=== PATIENT | female | born 1985 | race Caucasian/White ===

== ENCOUNTER 2017-04-11 01:26 | Inpatient (IN) | payer MEDICAID ==
[~2017-04-11] VITALS: Ht 162.6 cm; Wt 71.1 kg
--- NOTE | 2017-04-11 01:44 | HP ---
Date/Time of Note Date/Time of Note DATE: 04/11/17 TIME: 01:42 OB - History Hx of Present : 2 Para: 1 Care: Good Care Obstetrical Complications: None Medical Complications: None Past Family/Social History * Past Medical, Surgical, Family and Obstetric Histories reviewed from chart. OB Admission Exam Physical Exam HEENT: WNL Heart: Rhythm Normal Lungs: Clear Abdomen: WNL Extremities: Normal Cervical Dilatation: 3cm Membranes: Intact Accelerations: Accelerations Present Decelerations: No Decelerations Varibility: Moderate Contractions on Admission: < 5 Minutes Apart OB Assessment/Plan Reason for admission: active labor, group B positive strep Plan: Expectant Management Other plan: Ampicillin for GBS prophylaxis Epidural, pitocin prn MERLIN ALDRIDGE Apr 11, 2017 01:44
[2017-04-11 01:53] VITALS: Ht 162.6 cm; Wt 71.1 kg
[2017-04-11 01:54] VITALS: BP 112/67; PULSE 74; RESP 22
[2017-04-11] MEDS ORDERED: OXYCODONE/ASPIRIN (4.88/325) TAB PO PRN ×3 (02:00→15:00)
[2017-04-11] MEDS ORDERED: OXYTOCIN 30 UNITS/LR 500 ML IV SCH ×4 (02:00→14:42)
[2017-04-11] MEDS ORDERED: LIDOCAINE 1% (MPF) 30 ML INJ INJ PRN (02:00)
[2017-04-11] MEDS ORDERED: AMPICILLIN 2 GM/NS (PMX) 100 ML IV ONE (02:00)
[2017-04-11] MEDS ORDERED: IBUPROFEN 600 MG TAB PO PRN (02:00)
[2017-04-11] MEDS ORDERED: MISOPROSTOL 200 MCG TAB PR PRN (02:00)
[2017-04-11] MEDS ORDERED: METHYLERGONOVINE 0.2 MG INJ IM PRN (02:00)
[2017-04-11] MEDS ORDERED: CARBOPROST 250 MCG INJ IM PRN (02:00)
[2017-04-11] MEDS ORDERED: BUTORPHANOL 2 MG INJ IV PRN (02:00)
[2017-04-11] MEDS ORDERED: OXYTOCIN 30 UNITS/LR 500 ML IV PRN (02:00)
--- NOTE | 2017-04-11 02:05 | TRIAGE ---
OB Triage Datetime Report Generated by CPN: 04/11/2017 02:05 Datetime: 04/11/2017 01:37 Time of Arrival: 04/11/2017 01:40 EGA: 40.1 Arrived By: Wheelchair Arrived From: OB TRIAGE Datetime: 04/11/2017 01:36 Time of Arrival: 04/11/2017 01:19 Arrived By: Wheelchair Arrived From: Home Chief Complaint: uc's since 23:30 Movement: Present Contractions: Regular Time Contractions Began: 04/10/2017 23:30 Contractions: q5min Rupture of Membranes: Denies Vaginal Bleeding: None Vaginal Discharge: Present Recent Sexual Intercouse: Denies Abdominal Trauma: Not Applicable Patient Complaints: Contractions Time Provider Notified: 04/11/2017 01:40 Provider Notified: UAJE Initial Plan: efm, sve, call ob Datetime: 04/11/2017 01:35 Vaginal Exam Dilatation (cms): 3.0 Effacement (%): 70 Station: -2 Exam By: ramana estevez Vaginal Bleeding: None Cervix, Consistency: Moderate Cervix, Position: Posterior Presentation 'A': Cephalic Datetime: 04/11/2017 01:31 Stage of : OB Triage Temperature Route: Oral Datetime: 04/11/2017 01:30 Stage of : OB Triage Assessment Type: Triage Maternal Assessment Level of Consciousness: Fully Conscious Headache: Denies Blurred Vision: No Respiratory Effort: Unlabored; Regular Rhythm; Equal Expansion Nausea/Vomiting: Denies RUQ Epigastric Pain: Denies Facial Edema: None Fall Risk Assessment History of Falling: (0) No Secondary Diagnosis: (0) No Ambulatory Aid: (0) Bedrest/Nurse Assist IV Therapy: (0) No Gait: (0) Normal/Bedrest/Immobile Mental Status: (0) Oriented to Own Ability Fall Score: 0 Fall Risk Score Definition: No Risk: No action required Datetime: 04/11/2017 01:28 Stage of : OB Triage
[2017-04-11] MEDS: LACTATED RINGER'S 1,000 ML IV SCH ×3 (02:37→10:09)
[2017-04-11 02:47] LABS: BASOPHILS % 0.3 % (0.0-2.0); EOSINOPHILS % 0.3 % (0.0-7.0); HEMATOCRIT 39.5 % (37.0-47.0); LYMPHOCYTES # 1.9 10^3/ul (0.8-2.9); LYMPHOCYTES % 16.2 % (15.0-51.0); MEAN CORPUSCULAR HEMOGLOBIN 33.5 pg (29.0-33.0); MEAN CORPUSCULAR HGB CONC 35.4 g/dl (32.0-37.0); MEAN CORPUSCULAR VOLUME 94.5 fl (82.0-101.0); MEAN PLATELET VOLUME 11.2 fl (7.4-10.4); MONOCYTE # 0.8 10^3/ul (0.3-0.9); MONOCYTES % 6.3 % (0.0-11.0); NEUTROPHIL # 9.1 10^3/ul (1.6-7.5); NEUTROPHILS % 76.3 % (39.0-77.0); PLATELET COUNT 183 10^3/UL (140-415); RED BLOOD COUNT 4.18 10^6/ul (4.20-5.40); RED CELL DISTRIBUTION WIDTH 13.2 % (11.5-14.5); WHITE BLOOD COUNT 11.9 10^3/ul (4.8-10.8)
[2017-04-11 03:03] LABS: INR 0.9; PROTIME 12.2 Sec (11.9-14.9)
[2017-04-11 03:04] LABS: PARTIAL THROMBOPLASTIN TIME 26.6 Sec (25.0-35.0)
[2017-04-11] MEDS ORDERED: FENTAnyl 2MCG/ML-ROPIV 0.2% 100 ML ONE (05:35)
[2017-04-11] MEDS: AMPICILLIN 1 GM/NS (PMX) 50 ML IV SCH ×2 (06:43→10:02)
[2017-04-11] MEDS ORDERED: ONDANSETRON 4 MG INJ ONE (09:54)
[2017-04-11] MEDS ORDERED: ONDANSETRON 4 MG INJ IV PRN ×2 (10:00→15:00)
--- NOTE | 2017-04-11 13:03 | LDN ---
Date/Time of Note Date/Time of Note DATE: 04/11/17 TIME: 12:59 Delivery Summary Normal spontaneous vaginal delivery of a baby girl from OA position shoulders delivered with no difficulty rest of the baby's body followed. Cord clamped after stopped pulsation. Placenta is spontaneous expulsion inspected complete. Blood loss 250 cc Weeks of Gestation 40 weeks and 1 day Placenta Delivered: Spontaneously Meconium: none Episiotomy: No Laceration repair: Small first-degree perineal laceration repaired with 3-0 Vicryl suture Anesthesia type: Epidural Sponge & Needle done & correct: Yes All needle counts correct: Yes Any foreign bodies felt in the: No Problems: Infant Delivery Information Sex Infant Sex: female Apgars 1 Minute: 9 5 Minute: 9 Suctioning Nose & mouth suctioned at emmy: Yes Delee suction performed: No Umbilical Cord Umbilical cord with: 3 Vessels Cord presentations: no nuchal cord Cord Blood was obtained: Yes RAMOS GONZÁLES MD Apr 11, 2017 13:03
[2017-04-11 14:50] VITALS: BP 101/58; PULSE 81; RESP 18
[2017-04-11] MEDS ORDERED: BENZOCAINE 20% 56 ML SPRAY TOP PRN (15:00)
[2017-04-11] MEDS ORDERED: LANOLIN 7 GM TUBE TOP PRN (15:00)
[2017-04-11] MEDS ORDERED: HYDROCODONE/APAP (5/325) TAB PO PRN ×2 (15:00)
[2017-04-11] MEDS ORDERED: WITCH HAZEL/GLYCERIN PAD PR PRN (15:00)
[2017-04-11] MEDS ORDERED: DIBUCAINE 1% 30 GM OINT PR PRN (15:00)
[2017-04-11] MEDS ORDERED: ACETAMINOPHEN 325 MG TAB PO PRN (15:00)
[2017-04-11 15:20] VITALS: BP 114/60; RESP 20
[2017-04-11 16:40] VITALS: BP 114/60; PULSE 80; RESP 18
[2017-04-11] MEDS: IBUPROFEN 600 MG TAB PO SCH (17:14)
[2017-04-11 20:00] VITALS: BP 104/64; PULSE 80; RESP 18
[2017-04-11] MEDS: SENNA/DOCUSATE NA (8.6MG/50MG) TAB PO SCH (21:36)
[2017-04-12 00:10] VITALS: BP 102/66; PULSE 78; RESP 17
[2017-04-12] MEDS: IBUPROFEN 600 MG TAB PO SCH ×4 (00:24→18:02)
[2017-04-12] MEDS: LACTATED RINGER'S 1,000 ML IV SCH (01:49)
[2017-04-12 04:00] VITALS: BP 98/59; PULSE 78; RESP 18
[2017-04-12 08:00] VITALS: BP 98/55; PULSE 79; RESP 19
[2017-04-12 08:52] LABS: BASOPHILS % 0.3 % (0.0-2.0); EOSINOPHILS # 0.1 10^3/ul (0.0-0.5); EOSINOPHILS % 0.5 % (0.0-7.0); HEMATOCRIT 31.8 % (37.0-47.0); HEMOGLOBIN 11.3 g/dl (12.0-16.0); LYMPHOCYTES % 21.9 % (15.0-51.0); MEAN CORPUSCULAR HEMOGLOBIN 34.2 pg (29.0-33.0); MEAN CORPUSCULAR HGB CONC 35.5 g/dl (32.0-37.0); MEAN CORPUSCULAR VOLUME 96.4 fl (82.0-101.0); MONOCYTE # 0.6 10^3/ul (0.3-0.9); MONOCYTES % 6.5 % (0.0-11.0); NEUTROPHIL # 6.4 10^3/ul (1.6-7.5); NEUTROPHILS % 70.4 % (39.0-77.0); PLATELET COUNT 145 10^3/UL (140-415); RED CELL DISTRIBUTION WIDTH 13.2 % (11.5-14.5); WHITE BLOOD COUNT 9.1 10^3/ul (4.8-10.8)
[2017-04-12] MEDS: SENNA/DOCUSATE NA (8.6MG/50MG) TAB PO SCH ×2 (09:32→21:52)
--- NOTE | 2017-04-12 09:34 | QN ---
Documentation Comment day #1 Patient afebrile and stable She has no complaints Vital signs stable Abdomen soft nontender Fundus firm Perineum intact Extremities nontender CBC within normal limits Assessment and plan Encouraged to ambulate Plan to DC home tomorrow RODRIGO BOSTON MD Apr 12, 2017 09:34
[2017-04-12 16:00] VITALS: BP 105/61; PULSE 75; RESP 20
[2017-04-12 20:30] VITALS: BP 110/67; PULSE 71; RESP 20
[2017-04-13] MEDS: IBUPROFEN 600 MG TAB PO SCH ×3 (00:50→12:10)
[2017-04-13 04:45] VITALS: BP 96/54; PULSE 69; RESP 18
[2017-04-13 08:00] VITALS: BP 103/68; PULSE 68; RESP 20
[2017-04-13] MEDS ORDERED: MEASLES,MUMPS,RUBELLA VACCINE INJ SC* ONE (09:00)
[2017-04-13] MEDS: SENNA/DOCUSATE NA (8.6MG/50MG) TAB PO SCH (09:14)
--- NOTE | 2017-04-13 14:47 | PD.PPDC ---
[facility] Discharge Instruction Condition Patient Condition: Good Diet Diet: Resume Regular Diet Follow-up Follow-up with Physician: 2, Week/Weeks Provider Information: instruction given recommended to make appointment to be seen at the clinic in 2 weeks. Return to clinic for NEPHROLOGY NURSE Instructions: Fever greater than 101 Chills Worsening abdominal pain Excessive Vaginal Bleeding More than 2 pads per hour Unable to tolerate diet OB Instructions: Breast Tenderness Depression Blurried Vision Headache RAMOS GONZÁLES MD Apr 13, 2017 14:47
--- NOTE | 2017-04-13 14:49 | DS ---
Date/Time of Note Date/Time of Note DATE: 04/13/17 TIME: 14:48 Discharge Summary Admission/Discharge Info Admit Date/Time Apr 11, 2017 at 01:57 Discharge Date/Time April 13, 2017 at 2:45 PM Discharge Diagnosis Post normal vaginal delivery day 2 Procedures Normal vaginal delivery Hx of Present Illness Term Hospital Course Satisfactory recovery uneventful Home Meds Reported Medications [None] No Conflict Check 06/20/12 Follow-up Plan instruction given recommended to make appointment to be seen at the clinic in 2 weeks Primary Care Provider Care Physician No Primary Time spent on discharge: < 30 minutes RAMOS GONZÁLES MD Apr 13, 2017 14:49
== END 2017-04-13 17:26 | disposition home or self-care (01) | DRG 775 ==
LOC: OBT 01:26 → L-D 01:27 → OBT 01:56 → L-D 01:57 → PP1 14:53
PROVIDERS: ADMIT Obstetrics & Gynecology; ATTEND Obstetrics & Gynecology
PROC: 10E0XZZ Delivery of Products of Conception, External Approach (ICD-10-PCS; principal; 2017-04-11)
PROC: 0HQ9XZZ Repair Perineum Skin, External Approach (ICD-10-PCS; 2017-04-11)
PROC: 4A1HXCZ Monitoring of Products of Conception, Cardiac Rate, External Approach (ICD-10-PCS; 2017-04-11)
DX: O48.0 Post-term pregnancy (principal); O99.824 Streptococcus B carrier state complicating childbirth; O70.0 First degree perineal laceration during delivery; Z37.0 Single live birth; Z3A.40 40 weeks gestation of pregnancy
CPT/HCPCS: 62319; 85025; 85610; 85730; 86592; 86900; 86901; A4310; G0463; J0290; J0595; J2210; J2405; J2590; J3010; J7120